=== PATIENT | female | born 1980 | race Caucasian/White ===

== ENCOUNTER 2020-10-16 07:54 | Emergency (ER) | payer OTHER, SELFPAY ==
--- NOTE | ~2020-10-16 | XR_ITS ---
EXAMINATION: XR CHEST CLINICAL INFORMATION: Dyspnea COMPARISON: None TECHNIQUE: Frontal view of the chest was obtained. FINDINGS: The lungs are well-expanded and clear. Heart size and pulmonary vascularity is normal. No gross bony abnormality seen. XR/XR chest 1V IMPRESSION: Unremarkable chest exam.
--- NOTE | 2020-10-16 08:02 | ED_ITS ---
HPI - Chest Pain General Chief Complaint: Dyspnea Stated Complaint: Chest pain, pt hard time breathing Time Seen by Provider: 10/16/20 08:00 Source: patient Mode of arrival: ambulatory Limitations: no limitations History of Present Illness HPI narrative: 40 yo female with hx of asthma, GERD on OCPs here with dyspnea and chest burning since Tuesday after drinking a Chobani probiotic drink - no fevers, taking her H2 and PPI did use her inhaler which helped does suffer from seasonal allergies MD complaint: chest discomfort Onset (ago): day(s) (6) Timing of current episode: constant Prior episodes: No Onset: during rest and during exertion Pain location: substernal Pain radiation: none Severity: moderate Quality: burning Relieving factors: nothing Exacerbating factors: eating Context: other (on OCPs started after drinking Chobani probiotic drink at work) Associated symptoms: dyspnea Treatment prior to arrival: none Related Data Allergies Allergy/AdvReac Type Severity Reaction Status Date / Time citalopram Allergy Unknown Uncoded 07/17/19 00:00 penicillin Allergy Unknown Uncoded 07/17/19 00:00 Review of Systems Review of Systems: Constitutional : No Weight loss, No Fever, No Chills ENT/Mouth : No sore throat, No Rhinorrhea Eyes: No Eye Pain, No Swelling Cardiovascular : pos Chest Pain, pos SOB, no Dyspnea on Exertion, No Orthopnea, No Edema, No Palpitations Respiratory : No Cough, No Sputum Gastrointestinal : no Nausea, No Vomiting, No Diarrhea, No abdominal Pain, No Hematochezia, No Melena Genitourinary : No Dysuria, No Urinary Frequency Musculoskeletal : No joint pain, No Myalgias, No Joint Swelling Skin : No Skin Lesions, No rash Neuro : No Weakness, No Numbness, No Dizziness, No Headache Psych : No Anxiety/Panic, No Depression Heme/Lymph: No Bruising, No Lymphadenopathy Endocrine : No Polyuria, No Polydipsia All other systems reviewed and are negative PMFSH Past Medical History Attestation statement: The following information was validated with the patient. Medical History (Updated 10/16/20 @ 10:07 by Viola Godoy DO) Allergies Asthma GERD (gastroesophageal reflux disease) Social History Social History (Updated 10/16/20 @ 08:09 by Viola Godoy DO) Alcohol intake: never Patient Tobacco Use Status: Never used Tobacco Use of substances other than those prescribed or required for medical reasons: No Advance Directives: Yes Advance Directives Information Provided: Yes Advance Directives on File: No Patient : No Physical Exam Vital Signs: Vital Signs: Last Vital Signs Temp 98.4 F 10/16/20 08:47 Pulse 67 10/16/20 08:47 Resp 15 10/16/20 08:47 BP 138/93 H 10/16/20 08:47 Pulse Ox 100 10/16/20 08:47 Body Mass Index 35.0 Appearance: Alert. Oriented X3. No acute distress. Eyes: Pupils equal, round and reactive to light. ENT: Pharynx normal. Neck: Normal inspection. Neck supple. CVS: Normal heart rate and rhythm. Pulses normal. Respiratory: No respiratory distress. Breath sounds normal. Abdomen: Soft and non-tender. Skin: Skin warm and dry. Normal skin color. Normal skin turgor. Extremities: No lower extremity edema. No calf ttp Neuro: Oriented X 3. No motor deficit. No sensory deficit. Course Course Course Narrative: EKG, trop with > 24 hours of symptoms negative, negative ddimer, negative CXR stable for DC< distal pulses intact, normal BP not in dinstress doubt dissection MDM - Chest Pain MDM Narrative Medical decision making narrative: 40 yo female with hx of asthma, GERD on OCPs here with dyspnea and chest burning since Tuesday after drinking a Chobani probiotic drink - no fevers, taking her H2 and PPI did use her inhaler which helped does suffer from seasonal allergies at this time will need CXR, EKG, troponin x 1 given duration, ddimer given OCP use dispo per results and findings Lab Data Result diagrams: 10/16/20 08:43 10/16/20 08:43 Labs: Lab Results 10/16/20 10/16/20 10/16/20 Range/Units 08:43 08:43 08:43 WBC 6.9 (4.8-10.8) X10*3/uL RBC 3.93 L (4.20-5.50) X10*6/uL Hgb 10.7 L (12.0-16.0) g/dl Hct 33.5 L (37-47) % MCV 85.2 (80-98) fL MCH 27.2 (27.0-33.0) pg MCHC 31.9 (31.0-35.0) g/dl RDW 15.0 (11.0-16.0) % Plt Count 304 (160-400) X10*3/uL MPV 10.2 (9.4-12.3) fL Immature Gran % (Auto) 0.4 (0.0-0.4) % Neut % (Auto) 60.8 (45-73) % Lymph % (Auto) 25.1 (20-40) % Stephens % (Auto) 8.5 (2-11) % Eos % (Auto) 4.2 H (0-4) % Baso % (Auto) 1.0 (0-2) % Lymph # (Auto) 1.7 (1.2-4.9) X10*3/uL Stephens # (Auto) 0.6 (0.1-1.2) X10*3/uL Eos # (Auto) 0.3 (0.0-0.4) X10*3/uL Baso # (Auto) 0.1 (0.0-0.2) X10*3/uL Abs Immat Gran (auto) 0.03 (0.00-0.03) X10*3/uL Absolute Neuts (auto) 4.2 (2.0-8.3) X10*3/uL Absolute Nucleated RBC 0.000 (0.0-0.012) X10*3/uL Nucleated RBC % (auto) 0.0 (0.0-0.2) /100WBC D-Dimer < 200 NG/ML Sodium 138 (135-145) mmol/L Potassium 4.3 (3.3-5.1) mmol/L Chloride 108 (96-108) mmol/L Carbon Dioxide 22 (22-29) mmol/L Anion Gap 12 (12-20) BUN 17 H (9-16) mg/dL Creatinine 0.82 (0.5-1.4) mg/dL Estim Creat Clear Calc 101.5 Estimated GFR > 60 Random Glucose 92 (60-115) mg/dL Calcium 9.3 (8.4-10.2) mg/dL Magnesium (1.6-2.6) mg/dL Total Bilirubin (0.0-1.0) mg/dL Direct Bilirubin (0.0-0.5) mg/dL AST (5-31) U/L ALT (0-31) U/L Alkaline Phosphatase (39-117) U/L Troponin I High Sens (<3.5-17.0) ng/L Total Protein (6.5-8.0) g/dL Albumin (3.5-5.0) g/dL Lipase (8-78) U/L COVID-19 (CHARLES) (Negative) COVID-19 Clin Com 10/16/20 10/16/20 10/16/20 Range/Units 08:43 08:43 08:43 WBC (4.8-10.8) X10*3/uL RBC (4.20-5.50) X10*6/uL Hgb (12.0-16.0) g/dl Hct (37-47) % MCV (80-98) fL MCH (27.0-33.0) pg MCHC (31.0-35.0) g/dl RDW (11.0-16.0) % Plt Count (160-400) X10*3/uL MPV (9.4-12.3) fL Immature Gran % (Auto) (0.0-0.4) % Neut % (Auto) (45-73) % Lymph % (Auto) (20-40) % Stephens % (Auto) (2-11) % Eos % (Auto) (0-4) % Baso % (Auto) (0-2) % Lymph # (Auto) (1.2-4.9) X10*3/uL Stephens # (Auto) (0.1-1.2) X10*3/uL Eos # (Auto) (0.0-0.4) X10*3/uL Baso # (Auto) (0.0-0.2) X10*3/uL Abs Immat Gran (auto) (0.00-0.03) X10*3/uL Absolute Neuts (auto) (2.0-8.3) X10*3/uL Absolute Nucleated RBC (0.0-0.012) X10*3/uL Nucleated RBC % (auto) (0.0-0.2) /100WBC D-Dimer NG/ML Sodium (135-145) mmol/L Potassium (3.3-5.1) mmol/L Chloride (96-108) mmol/L Carbon Dioxide (22-29) mmol/L Anion Gap (12-20) BUN (9-16) mg/dL Creatinine (0.5-1.4) mg/dL Estim Creat Clear Calc Estimated GFR Random Glucose (60-115) mg/dL Calcium (8.4-10.2) mg/dL Magnesium 2.0 (1.6-2.6) mg/dL Total Bilirubin 1.0 (0.0-1.0) mg/dL Direct Bilirubin 0.4 (0.0-0.5) mg/dL AST 18 (5-31) U/L ALT 15 (0-31) U/L Alkaline Phosphatase 53 (39-117) U/L Troponin I High Sens < 3.5 (<3.5-17.0) ng/L Total Protein 6.5 (6.5-8.0) g/dL Albumin 3.9 (3.5-5.0) g/dL Lipase 25 (8-78) U/L COVID-19 (CHARLES) Negative (Negative) COVID-19 Clin Com See Note ECG Data ECG #1: Attestation: I personally reviewed and interpreted this ECG as follows: ECG interpretation date: 10/16/20 ECG interpretation time: 08:19 Interpretation: Rate: 77 Rhythm: NSR Rampart: normal Normal P waves. Normal JW. Normal QRS complex. ST T wave : normal no LILY qTC: normal prior studies: no acute ischemia The study has been interpreted contemporaneously by me. . Scores Heart Score History: -0- slightly suspicious ECG: -0- normal Age: -0- < or = 45 Risk factory: -0- no risk factors known Troponin: -0- < or = normal limit Score: 0 Risk: 1.7% Discharge Plan Discharge Clinical Impression: Atypical chest pain Patient Disposition: Home, Self-Care Instructions: Chest Pain (ED) Additional Instructions: return to ED for any worsening symptoms or concerns slightly low hemoglobin 10.7 follow up with PCP normal EKG, chest xray, EKG, negative heart markers and negative blood clot test Referrals: Christina Henderson NP [Primary Care Provider] - 5 days Stand Alone Forms: Work/School Release
--- NOTE | 2020-10-16 08:08 | ECG_ITS ---
Test Reason : CHEST PAIN Blood Pressure : / mmHG Vent. Rate : 077 BPM Atrial Rate : 077 BPM P-R Int : 158 ms QRS Dur : 084 ms QT Int : 392 ms P-R-T Axes : 024 030 037 degrees QTc Int : 443 ms Normal sinus rhythm with sinus arrhythmia Normal ECG No previous ECGs available Referred By: Viola Godoy Electronically Signed By:Felice Stiles
[2020-10-16 08:14] VITALS: BP 147/92; PULSE 75; RESP 16; TEMP 36.9; O2SAT 100; BMI 35.0
[2020-10-16 08:47] VITALS: BP 138/93; PULSE 67; RESP 15; TEMP 36.9; O2SAT 100
[2020-10-16 08:49] LABS: MANUAL DIFF FLAG NO
[2020-10-16 09:02] LABS: COVID-19 Test Negative (Negative); IDNOW Serial# 9DD0AD1C
[2020-10-16 09:06] LABS: Basophils Absolute Auto 0.1 X10*3/uL (0.0-0.2); Eosinophils Absolute Auto 0.3 X10*3/uL (0.0-0.4); Eosinophils Percent Auto 4.2 % (0-4); Hematocrit 33.5 % (37-47); Hemoglobin 10.7 g/dl (12.0-16.0); Imm Gran Abs Auto 0.03 X10*3/uL (0.00-0.03); Imm Gran Pct Auto 0.4 % (0.0-0.4); Lymphocytes Absolute Auto 1.7 X10*3/uL (1.2-4.9); Lymphocytes Percent Auto 25.1 % (20-40); Mean Corpuscular HGB Conc 31.9 g/dl (31.0-35.0); Mean Corpuscular Hemoglobin 27.2 pg (27.0-33.0); Mean Corpuscular Volume 85.2 fL (80-98); Mean Platelet Volume 10.2 fL (9.4-12.3); Monocytes Absolute Auto 0.6 X10*3/uL (0.1-1.2); Monocytes Percent Auto 8.5 % (2-11); Neutrophils Absolute Auto 4.2 X10*3/uL (2.0-8.3); Neutrophils Percent Auto 60.8 % (45-73); Platelet Count 304 X10*3/uL (160-400); Red Blood Count 3.93 X10*6/uL (4.20-5.50); White Blood Count 6.9 X10*3/uL (4.8-10.8)
[2020-10-16 09:12] LABS: Anion Gap 12 (12-20); Blood Urea Nitrogen 17 mg/dL (9-16); Calcium 9.3 mg/dL (8.4-10.2); Carbon Dioxide 22 mmol/L (22-29); Chloride 108 mmol/L (96-108); Creatinine Clr Calc Pharmacy 101.5; Estimated Glomerular Filt Rate > 60; Glucose Random 92 mg/dL (60-115); Potassium 4.3 mmol/L (3.3-5.1); Sodium 138 mmol/L (135-145)
[2020-10-16 09:13] LABS: Alanine Aminotransferase 15 U/L (0-31); Albumin Level 3.9 g/dL (3.5-5.0); Alkaline Phosphatase 53 U/L (39-117); Aspartate Amino Transferase 18 U/L (5-31); Bilirubin Direct 0.4 mg/dL (0.0-0.5); Lipase 25 U/L (8-78); Total Protein 6.5 g/dL (6.5-8.0)
[2020-10-16 09:16] LABS: D Dimer < 200 NG/ML
[2020-10-16 09:40] LABS: Troponin-I High Sensitivity < 3.5 ng/L (<3.5-17.0)
== END 2020-10-16 10:13 | disposition home or self-care (01) ==
PROVIDERS: Emergency Provider Emergency Medicine; PCP Nurse Practitioner
DX: R07.89 Other chest pain (principal); R06.00 Dyspnea, unspecified; Z20.822 Contact with and (suspected) exposure to COVID-19
CPT/HCPCS: 36415; 71045; 80048; 80076; 83690; 83735; 84484; 85025; 85379; 87635; 93005; 99284

== ENCOUNTER 2020-11-29 12:09 | Emergency (ER) | payer OTHER, SELFPAY ==
--- NOTE | ~2020-11-29 | CT_ITS ---
EXAMINATION: CT HEAD WITHOUT CONTRAST CLINICAL INFORMATION: Lightheadedness x1 week COMPARISON: None TECHNIQUE: Contiguous axial imaging was performed from the skull base to vertex without intravenous administration of contrast. This CT examination was performed using dose optimization techniques as appropriate, variously including the following: *Automated exposure control *Adjustment of mA and/or kV according to patient size (this includes techniques or standardized protocols for targeted exams where dose is matched to indication/reason for exam; i.e. extremities or head) *Use of iterative reconstruction technique DLP: 591 mGy-cm FINDINGS: There is no evidence of acute intracranial hemorrhage or territorial infarction. No abnormal mass effect or midline shift is seen. Boothe to white matter differentiation is well preserved. No extra-axial fluid collections are identified. The ventricles are normal in size. There is no abnormal attenuation within the brain parenchyma. The osseous structures and soft tissues are normal. There is mild mucoperiosteal thickening left anterior ethmoid, right sphenoid and right maxillary sinus. There is a moderate size polyp or retention cyst right maxillary sinus. CT/CT head/brain wo con IMPRESSION: No acute intracranial process seen Scattered chronic sinusitis as described above
--- NOTE | ~2020-11-29 | XR_ITS ---
EXAMINATION: XR CHEST CLINICAL INFORMATION: Shortness of breath. COMPARISON: 10/16/2020 port chest. TECHNIQUE: 2 views of the chest were obtained. FINDINGS: The lungs are clear. The heart and mediastinal structures are unremarkable. Mild cervicothoracic levoscoliosis is again noted. XR/XR chest 2V IMPRESSION: No acute cardiopulmonary process.
[2020-11-29 12:22] VITALS: BP 150/85; PULSE 55; RESP 16; TEMP 36.5; O2SAT 100; BMI 34.3
--- NOTE | 2020-11-29 12:58 | ECG_ITS ---
Test Reason : REPEAT Blood Pressure : / mmHG Vent. Rate : 051 BPM Atrial Rate : 051 BPM P-R Int : 140 ms QRS Dur : 092 ms QT Int : 460 ms P-R-T Axes : 013 041 042 degrees QTc Int : 423 ms Sinus bradycardia Otherwise normal ECG When compared with ECG of 29-NOV-2020 12:32, No significant change was found Referred By: Yeny Brito Electronically Signed By:Felice Stiles
[2020-11-29 13:33] LABS: Basophils Absolute Auto 0.1 X10*3/uL (0.0-0.2); Basophils Percent Auto 0.6 % (0-2); Eosinophils Absolute Auto 0.3 X10*3/uL (0.0-0.4); Eosinophils Percent Auto 3.4 % (0-4); Hematocrit 37.4 % (37-47); Hemoglobin 12.1 g/dl (12.0-16.0); Imm Gran Abs Auto 0.06 X10*3/uL (0.00-0.03); Imm Gran Pct Auto 0.6 % (0.0-0.4); Lymphocytes Absolute Auto 2.5 X10*3/uL (1.2-4.9); Lymphocytes Percent Auto 26.3 % (20-40); MANUAL DIFF FLAG NO; Mean Corpuscular HGB Conc 32.4 g/dl (31.0-35.0); Mean Corpuscular Hemoglobin 27.2 pg (27.0-33.0); Mean Platelet Volume 10.4 fL (9.4-12.3); Monocytes Absolute Auto 0.8 X10*3/uL (0.1-1.2); Monocytes Percent Auto 8.1 % (2-11); Neutrophils Absolute Auto 5.8 X10*3/uL (2.0-8.3); Platelet Count 370 X10*3/uL (160-400); Red Blood Count 4.45 X10*6/uL (4.20-5.50); Red Cell Distribution Width 15.1 % (11.0-16.0); White Blood Count 9.4 X10*3/uL (4.8-10.8)
[2020-11-29 13:56] LABS: COVID-19 Test Negative (Negative)
[2020-11-29 13:56] LABS: Prothrombin Time 11.7 SEC (9.9-13.0)
[2020-11-29 14:04] LABS: B Type Natriuretic Peptide 34 pg/mL (<100)
[2020-11-29 14:04] LABS: Troponin-I High Sensitivity < 3.5 ng/L (<3.5-17.0)
[2020-11-29 14:32] LABS: Glucose Urine UA NEG (NEG); Leukocyte Esterase Urine NEG (NEG); Nitrite Urine NEG (NEG); Urine Blood 3+ (NEG); Urine Ketones 15 MG/DL (NEG); Urine Protein NEG (NEG-TRACE)
[2020-11-29 14:41] LABS: Alanine Aminotransferase 16 U/L (0-31); Albumin Level 4.6 g/dL (3.5-5.0); Alkaline Phosphatase 65 U/L (39-117); Anion Gap 14 (12-20); Aspartate Amino Transferase 19 U/L (5-31); Bilirubin Total 1.7 mg/dL (0.0-1.0); Blood Urea Nitrogen 16 mg/dL (9-16); Calcium 9.8 mg/dL (8.4-10.2); Carbon Dioxide 20 mmol/L (22-29); Chloride 108 mmol/L (96-108); Creatinine Clr Calc Pharmacy 85.8; Estimated Glomerular Filt Rate > 60; Glucose Random 84 mg/dL (60-115); Magnesium 2.1 mg/dL (1.6-2.6); Potassium 4.3 mmol/L (3.3-5.1); Sodium 138 mmol/L (135-145)
[2020-11-29 14:44] LABS: Appearance Urine CLEAR; Color Urine YELLOW
[2020-11-29 14:45] LABS: WBC Urine 0 /HPF (0-4)
--- NOTE | 2020-11-29 15:37 | ED_ITS ---
HPI - General Adult General Chief complaint: General Medical Stated complaint: General Medical Time Seen by Provider: 11/29/20 12:27 Source: patient Mode of arrival: ambulatory Limitations: no limitations History of Present Illness HPI narrative: 40-year-old female with a past medical history of anxiety disorder, asthma, allergies, GERD and hypertension who has recently started on hypertensive medication 10 mg of lisinopril approximately 1 week and half ago presenting to the ED with multiple complaints which include intermittent lightheadedness, shaky feeling, tingling to all extremities upper and lower, left chest fluttering achy sensation and shortness of breath since she was started on the blood pressure medication. She reports that she has a lot of life stressors at this time and her dad is very ill at this time. She reports she is prescribed 0.5 mg of Ativan although has not taken it. She denies any dizziness, headache, fevers, chills, change in vision, nausea/vomiting, dyspnea is a rdz, orthopnea, palpitations, nausea/vomiting/diarrhea, abdominal pain, black or bloody stools or any other symptoms complaints or concerns at this time. She denies any SI/HI/auditory visualizations thoughts of self-injury. She reports that she does not feel like she needs to speak to a therapist or psychiatrist. Related Data Previous Rx's Medication Instructions Recorded lorazepam [Ativan] 0.5 mg PO TID PRN #14 tab 11/29/20 Allergies Allergy/AdvReac Type Severity Reaction Status Date / Time citalopram Allergy Unknown Unknown Uncoded 11/29/20 12:21 penicillin Allergy Unknown Unknown Uncoded 11/29/20 12:21 Review of Systems Review of Systems: Constitutional : No Weight loss, No Fever, No Chills, No Night Sweats, No Fatigue, No Malaise ENT/Mouth : No Hearing loss, No Ear Pain, No Nasal Congestion, No Sinus Pain, No Hoarseness, No sore throat, No Rhinorrhea, No Swallowing Difficulty Eyes: No Eye Pain, No Swelling, No Redness, No Foreign Body, No Discharge, No Vision Changes Cardiovascular : Positive chest pain/shortness of breath, No SOB, no Dyspnea on Exertion, No Orthopnea, No Edema, No extremity swelling, No Palpitations Respiratory : No Cough, No Sputum, No Wheezing, No Dyspnea Gastrointestinal : No Nausea, No Vomiting, No Diarrhea, No abdominal Pain, No Hematochezia, No Melena Genitourinary : No irregular bleeding, No Dysuria, No Urinary Frequency, No Hematuria, No Urinary Incontinence, No Urgency, No Flank Pain, No Urinary Flow Changes, No Hesitancy Musculoskeletal : No joint pain, No Myalgias, No Joint Swelling Skin : No Skin Lesions, No rash Neuro : Positive lightheadedness/paresthesias, No Weakness, No Numbness, No Paresthesias, No Loss of Consciousness, No Dizziness, No Headache Psych : No Anxiety/Panic, No Depression, No SI/HI/AH/VH Heme/Lymph: No Bruising, No Bleeding,No Lymphadenopathy Endocrine : No Polyuria, No Polydipsia, No Temperature Intolerance Yes all other systems are reviewed and are negative [facility] Past Medical History Attestation statement: The following information was validated with the patient. Medical History Allergies Asthma GERD (gastroesophageal reflux disease) Social History Social History Alcohol intake: never Patient Tobacco Use Status: Never used Tobacco Advance Directives: No Advance Directives Information Provided: Yes Patient : No Physical Exam Vital Signs: Vital Signs: Last Vital Signs Temp 97.7 F 11/29/20 12:22 Pulse 55 11/29/20 12:22 Resp 16 11/29/20 12:22 BP 150/85 H 11/29/20 12:22 Pulse Ox 100 11/29/20 12:22 Body Mass Index 34.3 vital signs have been reviewed as normal and appeared to be correct. Blood pressure hypertensive 150/85. Heart rate normal. Respiration rate normal. Temperature normal. Oxygen saturation normal. Appearance: Alert. Oriented X3. No acute distress. Head: Normal external exam. Normocephalic. Atraumatic. Eyes: PERRLA. EOMI. Conjunctiva and sclera normal. Eyelids normal. ENT: Pharynx normal. Uvula midline. Moist mucous membranes. Neck: Normal inspection. Neck supple. FROM. No adenopathy. Thyroid Normal. No meningeal signs. No neck mass noted. CVS: Normal heart rate and rhythm. Heart sound normal. Pulses normal throughout. No murmurs/rales/gallops. Respiratory: No respiratory distress. Painless inspiration. Breath sounds normal. No wheezes/rales/rhonchi noted. Chest nontender. No accessory muscle usage noted or decreased air movement noted. Abdomen: Soft and nontender. Bowel sounds normal in all 4 quadrants. No distention noted. No organomegaly noted. No visible injury noted. Back: No CVA tenderness. Full range of motion noted. No rashes/lesion/induration/fluctuance or signs of infection noted. Skin: Skin warm and dry. Normal skin color. Normal skin turgor. No rashes/lesions/lacerations noted. Extremities: No lower extremity edema. Calf tenderness is noted. Extremities exhibit normal range of motion. Extremities nontender. Neuro: Oriented X 3. No motor deficit. No sensory deficit. Reflexes normal. Normal steady gait. No focal neuro deficits noted. Vascular: + radial pulses/+ 2 distal pedal pulses/+2 dorsalis pedis b/l. Normal cap refill. No cyanosis noted to upper extremity nails and lower extremity toes nails. Course Course Course Narrative: 40-year-old female with a past medical history of anxiety disorder, asthma, allergies, GERD and hypertension who has recently started on hypertensive medication 10 mg of lisinopril approximately 1 week and half ago presenting to the ED with multiple complaints which include intermittent lightheadedness, shaky feeling, tingling to all extremities upper and lower, left chest fluttering achy sensation and shortness of breath since she was started on the blood pressure medication. She reports that she has a lot of life stressors at this time and her dad is very ill at this time. She reports she is prescribed 0.5 mg of Ativan although has not taken it. Labs obtained and mild elevation in total bilirubin at 1.7 otherwise all other labs are within normal limits. UA with blood otherwise no evidence of UTI. COVID swab negative. Chest x-ray within normal limits no acute processes were noted. CT scan of brain revealed chronic sinusitis otherwise no acute processes are noted. Therefore I explained to the patient that most likely she is having an adverse reaction to the hypertensive medication and she asked me if she should discontinue the hypertensive medication I told her that she should not and I can give her anxiety medication she reports she already has some therefore explained to her that she should take it at the same time she takes a blood pressure medication instructions to return if any new or worsening symptoms to follow up with primary care provider. Patient understands agrees with this pl an. Medical Decision Making Medical Records Medical records reviewed: Yes I reviewed the patient's medical records. Lab Data Lab results reviewed: Yes I reviewed the patient's lab results. Result diagrams: 11/29/20 13:26 11/29/20 13:26 Labs: Lab Results 11/29/20 11/29/20 11/29/20 Range/Units 13:25 13:26 13:26 WBC 9.4 (4.8-10.8) X10*3/uL RBC 4.45 (4.20-5.50) X10*6/uL Hgb 12.1 (12.0-16.0) g/dl Hct 37.4 (37-47) % MCV 84.0 (80-98) fL MCH 27.2 (27.0-33.0) pg MCHC 32.4 (31.0-35.0) g/dl RDW 15.1 (11.0-16.0) % Plt Count 370 (160-400) X10*3/uL MPV 10.4 (9.4-12.3) fL Immature Gran % (Auto) 0.6 H (0.0-0.4) % Neut % (Auto) 61.0 (45-73) % Lymph % (Auto) 26.3 (20-40) % Crane % (Auto) 8.1 (2-11) % Eos % (Auto) 3.4 (0-4) % Baso % (Auto) 0.6 (0-2) % Lymph # (Auto) 2.5 (1.2-4.9) X10*3/uL Crane # (Auto) 0.8 (0.1-1.2) X10*3/uL Eos # (Auto) 0.3 (0.0-0.4) X10*3/uL Baso # (Auto) 0.1 (0.0-0.2) X10*3/uL Abs Immat Gran (auto) 0.06 H (0.00-0.03) X10*3/uL Absolute Neuts (auto) 5.8 (2.0-8.3) X10*3/uL Absolute Nucleated RBC 0.000 (0.0-0.012) X10*3/uL Nucleated RBC % (auto) 0.0 (0.0-0.2) /100WBC PT 11.7 (9.9-13.0) SEC INR 1.0 (0.9-1.1) Sodium (135-145) mmol/L Potassium (3.3-5.1) mmol/L Chloride (96-108) mmol/L Carbon Dioxide (22-29) mmol/L Anion Gap (12-20) BUN (9-16) mg/dL Creatinine (0.5-1.4) mg/dL Estim Creat Clear Calc Estimated GFR Random Glucose (60-115) mg/dL Calcium (8.4-10.2) mg/dL Magnesium (1.6-2.6) mg/dL Total Bilirubin (0.0-1.0) mg/dL AST (5-31) U/L ALT (0-31) U/L Alkaline Phosphatase (39-117) U/L Troponin I High Sens (<3.5-17.0) ng/L B-Natriuretic Peptide 34 (<100) pg/mL Total Protein (6.5-8.0) g/dL Albumin (3.5-5.0) g/dL Urine Color Urine Appearance Urine pH (5.0-8.0) Ur Specific [place] (1.005-1.025) Urine Protein (NEG-TRACE) MG/DL Urine Glucose (UA) (NEG) MG/DL Urine Ketones (NEG) MG/DL Urine Blood (NEG) Urine Nitrite (NEG) Ur Leukocyte Esterase (NEG) Urine RBC (0) /HPF Urine WBC (0-4) /HPF Ur Squamous Epith Cells /LPF Urine Bacteria /LPF COVID-19 (CHARLES) (Negative) COVID-19 Clin Com 11/29/20 11/29/20 11/29/20 Range/Units 13:26 13:26 13:32 WBC (4.8-10.8) X10*3/uL RBC (4.20-5.50) X10*6/uL Hgb (12.0-16.0) g/dl Hct (37-47) % MCV (80-98) fL MCH (27.0-33.0) pg MCHC (31.0-35.0) g/dl RDW (11.0-16.0) % Plt Count (160-400) X10*3/uL MPV (9.4-12.3) fL Immature Gran % (Auto) (0.0-0.4) % Neut % (Auto) (45-73) % Lymph % (Auto) (20-40) % Crane % (Auto) (2-11) % Eos % (Auto) (0-4) % Baso % (Auto) (0-2) % Lymph # (Auto) (1.2-4.9) X10*3/uL Crane # (Auto) (0.1-1.2) X10*3/uL Eos # (Auto) (0.0-0.4) X10*3/uL Baso # (Auto) (0.0-0.2) X10*3/uL Abs Immat Gran (auto) (0.00-0.03) X10*3/uL Absolute Neuts (auto) (2.0-8.3) X10*3/uL Absolute Nucleated RBC (0.0-0.012) X10*3/uL Nucleated RBC % (auto) (0.0-0.2) /100WBC PT (9.9-13.0) SEC INR (0.9-1.1) Sodium 138 (135-145) mmol/L Potassium 4.3 (3.3-5.1) mmol/L Chloride 108 (96-108) mmol/L Carbon Dioxide 20 L (22-29) mmol/L Anion Gap 14 (12-20) BUN 16 (9-16) mg/dL Creatinine 0.96 (0.5-1.4) mg/dL Estim Creat Clear Calc 85.8 Estimated GFR > 60 Random Glucose 84 (60-115) mg/dL Calcium 9.8 (8.4-10.2) mg/dL Magnesium 2.1 (1.6-2.6) mg/dL Total Bilirubin 1.7 H (0.0-1.0) mg/dL AST 19 (5-31) U/L ALT 16 (0-31) U/L Alkaline Phosphatase 65 D (39-117) U/L Troponin I High Sens < 3.5 (<3.5-17.0) ng/L B-Natriuretic Peptide (<100) pg/mL Total Protein 8.0 D (6.5-8.0) g/dL Albumin 4.6 (3.5-5.0) g/dL Urine Color Urine Appearance Urine pH (5.0-8.0) Ur Specific [place] (1.005-1.025) Urine Protein (NEG-TRACE) MG/DL Urine Glucose (UA) (NEG) MG/DL Urine Ketones (NEG) MG/DL Urine Blood (NEG) Urine Nitrite (NEG) Ur Leukocyte Esterase (NEG) Urine RBC (0) /HPF Urine WBC (0-4) /HPF Ur Squamous Epith Cells /LPF Urine Bacteria /LPF COVID-19 (CHARLES) Negative (Negative) COVID-19 Clin Com See Note 11/29/20 Range/Units 14:24 WBC (4.8-10.8) X10*3/uL RBC (4.20-5.50) X10*6/uL Hgb (12.0-16.0) g/dl Hct (37-47) % MCV (80-98) fL MCH (27.0-33.0) pg MCHC (31.0-35.0) g/dl RDW (11.0-16.0) % Plt Count (160-400) X10*3/uL MPV (9.4-12.3) fL Immature Gran % (Auto) (0.0-0.4) % Neut % (Auto) (45-73) % Lymph % (Auto) (20-40) % Crane % (Auto) (2-11) % Eos % (Auto) (0-4) % Baso % (Auto) (0-2) % Lymph # (Auto) (1.2-4.9) X10*3/uL Crane # (Auto) (0.1-1.2) X10*3/uL Eos # (Auto) (0.0-0.4) X10*3/uL Baso # (Auto) (0.0-0.2) X10*3/uL Abs Immat Gran (auto) (0.00-0.03) X10*3/uL Absolute Neuts (auto) (2.0-8.3) X10*3/uL Absolute Nucleated RBC (0.0-0.012) X10*3/uL Nucleated RBC % (auto) (0.0-0.2) /100WBC PT (9.9-13.0) SEC INR (0.9-1.1) Sodium (135-145) mmol/L Potassium (3.3-5.1) mmol/L Chloride (96-108) mmol/L Carbon Dioxide (22-29) mmol/L Anion Gap (12-20) BUN (9-16) mg/dL Creatinine (0.5-1.4) mg/dL Estim Creat Clear Calc Estimated GFR Random Glucose (60-115) mg/dL Calcium (8.4-10.2) mg/dL Magnesium (1.6-2.6) mg/dL Total Bilirubin (0.0-1.0) mg/dL AST (5-31) U/L ALT (0-31) U/L Alkaline Phosphatase (39-117) U/L Troponin I High Sens (<3.5-17.0) ng/L B-Natriuretic Peptide (<100) pg/mL Total Protein (6.5-8.0) g/dL Albumin (3.5-5.0) g/dL Urine Color YELLOW Urine Appearance CLEAR Urine pH 6.0 (5.0-8.0) Ur Specific [place] 1.010 (1.005-1.025) Urine Protein NEG (NEG-TRACE) MG/DL Urine Glucose (UA) NEG (NEG) MG/DL Urine Ketones 15 (NEG) MG/DL Urine Blood 3+ H (NEG) Urine Nitrite NEG (NEG) Ur Leukocyte Esterase NEG (NEG) Urine RBC 15-29 H (0) /HPF Urine WBC 0 (0-4) /HPF Ur Squamous Epith Cells NONE /LPF Urine Bacteria NONE /LPF COVID-19 (CHARLES) (Negative) COVID-19 Clin Com ECG Data Attestation: I personally reviewed and interpreted this ECG as follows: Discharge Plan Discharge Clinical Impression: Anxiety, Adverse reaction to LUANNE inhibitor drug Patient Disposition: Home, Self-Care Instructions: Lisinopril (By mouth), Anxiety (ED) Prescriptions: New lorazepam [Ativan] 0.5 mg tablet 0.5 mg PO TID PRN (Reason: anxiety) Qty: 14 RF: 0 Referrals: Christina Henderson NP [Primary Care Provider] - 2 days Print Language: Mozambican
[2020-11-29] MEDS: LORazepam 2 MG/ML VIAL 0.5 MG IVPUSH (16:03)
--- NOTE | 2020-11-29 16:20 | ECG_ITS ---
Test Reason : CHEST PAIN Blood Pressure : / mmHG Vent. Rate : 057 BPM Atrial Rate : 057 BPM P-R Int : 156 ms QRS Dur : 090 ms QT Int : 408 ms P-R-T Axes : -03 025 037 degrees QTc Int : 397 ms Sinus bradycardia Otherwise normal ECG When compared with ECG of 16-OCT-2020 08:17, No significant change was found Referred By: Yeny Brito Electronically Signed By:Felice Stiles
== END 2020-11-29 16:24 | disposition home or self-care (01) ==
PROVIDERS: Physician Assistant Medical; Emergency Provider Emergency Medicine; PCP Nurse Practitioner
DX: R42 Dizziness and giddiness (principal); T46.4X5A Adverse effect of angiotensin-converting-enzyme inhibitors, initial encounter; Y92.9 Unspecified place or not applicable; F41.9 Anxiety disorder, unspecified; I10 Essential (primary) hypertension; Z20.822 Contact with and (suspected) exposure to COVID-19
CPT/HCPCS: 36415; 70450; 71046; 80053; 81001; 83735; 83880; 84484; 85025; 85610; 87635; 93005; 99283; 99284; J2060

== ENCOUNTER 2024-04-29 18:42 | Emergency (ER) | payer OTHER, SELFPAY ==
--- NOTE | ~2024-04-29 | US_ITS ---
EXAMINATION: US TRIPLEX LOWER EXTREMITY, RIGHT CLINICAL INFORMATION: Right lateral leg pain. COMPARISON: None available. TECHNIQUE: Color-flow triplex imaging with spectral analysis and compression Doppler were performed on the right lower extremity. FINDINGS: Respiratory variation, normal compression and augmented flow are noted throughout the right lower extremity. The visualized common femoral vein, superficial femoral vein, profunda femoral vein, popliteal vein and midcalf peroneal and posterior tibial venous segments show no evidence of deep venous thrombosis. There is a small Westbrook's cyst measuring 1.4 x 0.7 x 0.6 cm. US/US venous duplex LE RT IMPRESSION: 1. No evidence of deep venous thrombosis involving the right lower extremity. 2. Small Westbrook's cyst. Electronically signed by: Antoine Esteves MD 04/29/2024 10:08 PM [facility]
--- OUTSIDE RECORDS SUMMARY | 2024-04-29 18:44 | XMS_ITS | Continuity of Care Document ---
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 Today we discussed the pathophysiology of migraine and migraine associated phenomena such as dizziness and visual aura. We discussed how the patient's balance disturbance symptoms are likely mediated by a central processing abnormality rather than an isolated inner ear abnormality. I gave the patient a significant amount of literature to review at home regarding how there are many environmental and dietary triggers that can lead to not only migraine headaches but balance disturbance symptoms as well. We spent a lot of time discussing the importance of following a migraine diet. We have offered the patient a copy of the Heal Your Headache book to read at home, which gives a lfgs-fi-oexf discussion on what causes migraine and how to make the necessary lifestyle and dietary changes to significantly reduce or eliminate migraine symptoms. I have also recommended the use of dietary supplements magnesium, vitamin B2 and feverfew which have been shown to help control migrainous phenomena. We discussed dosage and schedule for these supplements. We discussed alternative of using Migranol, which contains a combination of magnesium, vitamin B2, and feverfew. Follow up: As needed Not available 03/08/2024 15:05:28 Plan of Treatment Reminders Order Date Submit Date Provider Last Modified By Organization Details Last Modified Time Details Appointments None record ed. Lab None record ed. Referral None record ed. Procedures None record ed. Surgeries None record ed. Imaging None record ed. Medication Orders None record ed. Patient TargetsNo targets recorded. Patient InstructionsNo instructions recorded. Reason for Referral None Reported. Results Created Date Observation Date Name Description Value Unit Range Abnormal Flag Note LastModifiedBy Organization Detail LastModifiedTime 03/08/20 audio gram No observ ation record ed. [email or web address] Not Available 02/14 16:19:15 Result Notes None recorded. Problems Name Problem SNOMED Code Status Onset Date Resolution Date Notes Provider Name and Address Organization Details Recorded Time Abnormal auditory perception 56171208 Active 2023 XIN ARAYA [address] [address], [place], [address], [facility] - [facility] 13:21:32 Vertigo of central origin 14251316 Active 2023 MP LAM MD [address] [address], [place], [address], [facility] - [facility] 15:01:44 Migraine variants 892563269 Active 2023 MP LAM MD [address] [address], [place], [address], [facility] - [facility] 15:01:44 Migraine with aura 4061364 Active 2023 MP LAM MD [address] [address], [place], [address], [facility] - [facility] 15:01:44 Obstructive sleep apnea syndrome 57645011 Active 2023 MP LAM MD [address] [place] [address], [place], [address], [place] - [facility] 15:04:32 Weakness of right facial muscle 206411189 Active 2023 MP LAM MD [address] [address], [place], [address], [place] - [facility] [place] [place] 4 15:04:38 Problem Notes None recorded. Procedures Surgical History Date Name Laterality Status Provider Name and Address Organization Details Recorded Time 03/08/2024 Air & Speech Audio with Tymps (23437, 98081 & 03317) completed MACK TOURE, [facility] [address] [facility],[address], [address], [facility] 03/08/2024 13:21:22 Imaging Results None recorded. Procedure Notes None recorded. Medical Equipment None Reported. Allergies Allergen ID Allergen Name Allergen Category Reaction Reaction Severity Criticality Documentation Date Start Date Code Code System Note Provider Name and Address Organization Details Recorded Time 728234 citalopra m medicatio n Not available Not available Not available 03/08/2024 2556 RxNorm Maryan encarnacion [facility] 13:15:23 382255 SARS-CoV- 2 (COVID-19 ) vaccine, mRNA-BNT1 62b2 medicatio n Not available Not available Not available 03/08/2024 76047 30 RxNorm Maryan encarnacion [facility] 13:15:59 406986 Nexplanon medicatio n Not available Not available Not available 03/08/2024 11236 08 RxNorm Maryan encarnacion [facility] 13:16:08 421629 Medicinal product containin g penicilli n and acting as antibacte rial agent (product) medicatio n Not available Not available Not available 03/08/2024 63253 05 SNOMED Maryan encarnacion [facility] 13:16:14 269787 sertralin e medicatio n Not available Not available Not available 03/08/2024 84206 RxNorm Maryan encarnacion [facility] 13:16:20 Medications Name Sig Start Date Stop Date Status Note LastModified by Organization Details LastModified Time pantoprazol e 20 mg tablet,suzanne yed release TAKE 1 TABLET BY MOUTH TWICE A DAY active Not Available Not Available No t Available ferrous sulfate 325 mg (65 mg iron) tablet TAKE 1 TABLET BY MOUTH EVERY OTHER DAY active Not Available Not Available No t Available triamcinolo ne acetonide 55 mcg nasal spray aerosol SPRAY 1-2 SPRAYS INTO EACH NOSTRIL EVERY DAY active Not Available Not Available No t Available gabapentin 300 mg capsule TAKE 1 CAPSULE BY MOUTH EVERY EVENING active Not Available Not Available No t Available mupirocin 2 % topical ointment APPLY A SMALL AMOUNT TO THE AFFECTED AREA 3 TIMES PER DAY FOR 5 TO 7 DAYS active Not Available Not Available No t Available gabapentin 100 mg capsule TAKE 1 CAPSULE BY MOUTH EVERY DAY IN THE MORNING active Not Available Not Available No t Available metoprolol succinate ER 25 mg tablet,exte nded release 24 hr TAKE 1 TABLET BY MOUTH EVERY DAY 03/08 completed Not Available Not Available Not Available epinephrine 0.3 mg/0.3 mL injection, auto-inject or INJECT 0.3 MG SUBCUTANE OUSLY/INT RAMUSCULA RLY ONCE. MAY REPEAT DOSE XI AFTER 5-15MIN active Not Available Not Available No t Available albuterol sulfate HFA 90 mcg/actuati on aerosol inhaler INHALE 2 PUFFS BY MOUTH EVERY 4 HOURS NEEDED active Not Available Not Available No t Available lisinopril 2.5 mg tablet TAKE 1 TABLET BY MOUTH EVERY DAY active Not Available Not Available No t Available levothyroxi ne 112 mcg tablet TAKE 1 TABLET BY MOUTH EVERY DAY, 2 HOURS APART FROM ANY FOOD OR MEDICINE active Not Available Not Available No t Available cetirizine 10 mg capsule Take by oral route. active Not Available Not Available No t Available Vitals Date Recorded Body height Body weight Provider Name and Address Organization Details Last Updated DateTime 03/08/2024 161.93 cm 609357.09 g Maryan Briggs [place] - [facility] 03/08/2024 13:18:36 Social History None recorded. Functional Status None recorded. Mental Status None recorded. Family History Nothing Reported. Medical History Condition Response Allergies/Hayfever Y Anxiety Y Migraines Y Thyroid Problems Y Anemia Y Asthma Y GERD/Reflux Y Hypertension Y Gynecological HistoryNo gynecological history recorded. Obstetrics History GPAL:G 0 P 0 0 0 0 Past Encounters Encounter ID Performer Location Encounter Start Date Encounter Closed Date Diagnosis/Indication Diagnosis SNOMED-CT Code Diagnosis ICD10 Code [id number] MP LAM MD [facility] [address] [address] 03/08/2024 12:51:41 03/08/2024 15:03:47 Abnormal auditory perception 68239754 H93.299 Migraine variants 216788 005 G43.809 Vertigo of central origin 16249299 H81.4 Migraine with aura 33604 06 G43.109 Obstructiv e sleep apnea syndrome 14177240 G47.33 Weakness o f right facial muscle 027830432 R29.810 Health Concerns Section Related Observation LastModified by Organization Detai ls LastModified Time None Recorded Concern Status LastModified by Organization Details LastModified Time None Recorded Payers Encounter Date Sequence Insurance Name Policy Number Policy [place]ato Covered Member ID Lobato Member ID Guarantor Name 03/08/2024 1 [facility] [id number] Jennifer Goodwin [id number] Jennifer Goodwin Notes Date Note Type Note Provider Name and Address Organization Details Recorded Time 03/08/2024 text/html Patient referred for evaluation of balance disturbance. When she was seen by her primary care physician back in August she was noticing dizziness in the morning and with certain head positions. She reported having had physical therapy for dizziness in the past. At that visit she also noted snoring as well as significant oxygen desaturations based on her smart watch monitoring. Patient did end up having a sleep study showing obstructive sleep apnea. She has been on CPAP for several months now and has been using it consistently. She has noticed overall improvement in her symptoms as noted below.Patient reports that for the last 2 years she has been having chronic sensation of fogginess, low-level of feeling off balance without true vertigo, motion intolerance and feeling like she is walking on the deck of a moving boat. Symptoms tend to be worse during allergy season (currently getting allergy shots through [facility]), as well as during her menstrual period. Patient does have a headache most days, usually behind her eyes. 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 MP LAM MD [address] [place] [address], [address], [facility] - [facility] 03/08/2024 15:06:06 OBGyn Episode No OBEpisode recorded.
--- OUTSIDE RECORDS SUMMARY | 2024-04-29 18:44 | XMS_ITS | Data Portability ---
Author Organization [place] - [facility], [facility]ergy Address [address] [place] [address] Care Team Providers Care Seaming Machine Operator Name Role Phone TAMIE CORDOVA Primary Care Provider CHINO LARIOS Referring Provider [phone] Assessment Encounter Date Assessment Date Assessment LastModified [...] to read at home, which gives a akcz-up-nomo discussion on what causes migraine and how [...] B2, and feverfew. Follow up: As needed [email or web address] Not available 03/08/2024 15:05:28 Plan of Treatment [...] audio gram No observ ation record ed. Not Available 02/14 16:19:15 Result Notes None recorded. Problems Name Problem SNOMED Code Status Onset Date Resolution Date Notes Provider Name and Address Organization Details Recorded Time Abnormal auditory perception 50892694 Active 2023 XIN ARAYA [address] [facility], [facility], [place], [place], [address], [place] - [facility] 13:21:32 Vertigo of central origin 66072526 Active 2023 MP LAM MD [address] [address], [place], [address], [facility] - [facility] 4 15:01:44 Migraine variants 590505894 Active 2023 MP LAM MD [address] [address], [place], [address], [facility] - [facility] 4 15:01:44 Migraine with aura 0032944 Active 2023 MP LAM MD [address] [address], [place], [address], [facility] - [facility] 4 15:01:44 Obstructive sleep apnea syndrome 50943877 Active 2023 MP LAM MD [address] [address], [place], [address], [place] - [facility] 4 15:04:32 Weakness of right facial muscle 273300747 Active 2023 MP LAM MD [address] [facility], [facility], [place], [address], [place] - [facility] 4 15:04:38 Problem Notes None recorded. Procedures Surgical History Date Name Laterality Status Provider Name and Address Organization Details Recorded Time 03/08/2024 Air & Speech Audio with Tymps (32698, 68878 & 77275) completed MACK TOURE, [facility] [address] [facility],[address], [address], [place] - [facility] 03/08/2024 13:21:22 Imaging Results Imaging Date Name Status LastModified by Organiz ation Details LastModified Time 03/08/2024 audiogram completed [email or web address] Information n ot available 03/08/2024 16:19:15 Procedure Notes None recorded. Medical Equipment None Reported. Allergies Allergen ID Allergen Name Allergen Category Reaction Reaction Severity Criticality Documentation Date Start Date Code Code System Note Provider Name and Address Organization Details Recorded Time 245656 citalopra m medicatio n Not available Not available Not available 03/08/2024 2556 RxNorm Maryan encarnacion [facility] 13:15:23 050147 SARS-CoV- 2 (COVID-19 ) vaccine, mRNA-BNT1 62b2 medicatio n Not available Not available Not available 03/08/2024 66641 30 RxNoerick encarnacion [place] - [facility] 13:15:59 392771 Nexplanon medicatio n Not available Not available Not available 03/08/2024 71342 08 RxNorm Maryan encarnacion [place] - [facility] 13:16:08 379240 Medicinal product containin g penicilli n and acting as antibacte rial agent (product) medicatio n Not available Not available Not available 03/08/2024 09963 05 SNOMED Maryan encarnacion [facility] 13:16:14 707931 sertralin e medicatio n Not available Not available Not available 03/08/2024 51464 RxNorm Maryan encarnacion [facility] 13:16:20 Medications Name Sig Start Date [...] Details Last Updated DateTime 03/08/2024 161.93 cm 815609.09 g Maryan Briggs [place] - [facility] 03/08/2024 13:18:36 Social History None recorded. Functional Status None recorded. Mental Status None recorded. Family History Nothing Reported. Medical History Condition Response Allergies/Hayfever Y Anemia Y Anxiety Y GERD/Reflux Y Migraines Y Thyroid Problems Y Hypertension Y Asthma Y Gynecological HistoryNo gynecological history recorded. Obstetrics History GPAL:G 0 P 0 0 0 0 Past Encounters Encounter ID Performer Location Encounter Start Date Encounter Closed Date Diagnosis/Indication Diagnosis SNOMED-CT Code Diagnosis ICD10 Code [id number] MP LAM MD [facility] of [address] [place] [address] 03/08/2024 12:51:41 03/08/2024 15:03:47 Abnormal auditory perception 05839654 H93.299 Migraine variants 180034 005 G43.809 Vertigo of central origin 60149789 H81.4 Migraine with aura 50452 06 G43.109 Obstructiv e sleep apnea syndrome 71585379 G47.33 Weakness o f right facial muscle 106819022 R29.810 Health Concerns Section Related Observation LastModified by Organization Detai ls LastModified Time None Recorded Concern Status LastModified by Organization Details LastModified Time None Recorded Advance Directives Directive None Recorded Payers Encounter Date Sequence Insurance Name Policy Number Policy Lobato Covered Member ID Lobato Member ID Guarantor Name 03/08/[address] [place] [address] [id number] Jennifer Goodwin [id number] Jennifer Goodwin Notes Date Note Type Note [...] allergy season (currently getting allergy shots through [facility]), as well as during her menstrual period. Patient does have a headache most days, usually behind her eyes. 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 MP LAM MD [address] [place] [address], [place], [address], [facility] - [facility] 03/08/2024 15:06:06 OBGyn Episode No OBEpisode recorded.
--- NOTE | 2024-04-29 18:45 | ED_ITS ---
HPI - General Adult General Chief complaint: General Medical Stated complaint: ? R leg blood clot Time Seen by Provider: 04/29/24 20:04 Source: patient Limitations: no limitations History of Present Illness ED Provider: Bere de la rosa PA-C HPI narrative: 44-year-old female with a history of morbid obesity, hypertension, asthma and anxiety presents with painful lesion to lateral right lower extremity. Patient states she was in the shower, shaving her legs, which she noticed a painful bump on the lower extremity. Denies unilateral calf pain or swelling, recent surgery, recent travel, no immobility. Related Data Previous Rx's ?Medication ?Instructions ?Recorded lorazepam 0.5 mg tablet (Ativan) 0.5 mg PO TID PRN anxiety #14 tabs 11/29/20 Allergies Allergy/AdvReac Type Severity Reaction Status Date / Time citalopram Allergy Mild Unknown Verified 04/29/24 18:52 COVID-19 (SARS-CoV-2) Allergy Mild Unknown Verified 04/29/24 18:52 vaccine, glory penicillin Allergy Mild Unknown Uncoded 04/29/24 18:52 Review of Systems 2 Review of Systems: Yes all other systems are reviewed and are negative Constitutional: Constitutional: Denies fatigue and Denies fever(s) Cardiovascular: Cardiovascular: Denies chest pain and Denies dyspnea Respiratory: Respiratory: Denies dyspnea Gastrointestinal: Gastrointestinal: Denies nausea and Denies vomiting Integumentary/Breasts: Skin/Breast: Reports new lesions Endocrine: Endocrine: Denies fatigue PMF Past Medical History Attestation statement: The following information was validated with the patient. Medical History Allergies Asthma GERD (gastroesophageal reflux disease) Social History Social History Alcohol intake: never Patient Tobacco Use Status: Never used Tobacco Advance Directives: No Advance Directives Information Provided: Yes Do you have a plan to hurt others: No Plan Physical Exam ED Vital Signs: Vital Signs - 24 hr 04/29/24 18:48 04/29/24 21:43 Temperature 98.3 F 99.0 F Pulse Rate 86 78 Respiratory Rate 18 16 Blood Pressure 157/93 H 135/84 Pulse Oximetry 99 100 Oxygen Delivery Method Room Air Room Air BMI result Body Mass Index 45.1 Const Other: Alert, appears older than stated age Orientation/consciousness: patient oriented x3 Resp Other: Nonlabored respirations Cardio Other: Normal peripheral perfusion Skin Other: Warm dry no rash Neuro General: patient oriented x3, no focal motor deficits and CN's II-XI intact bilaterally Extrem Other: Small raised bump, under the skin, on right lateral calf with a overlying erythema, Psych Other: Calm cooperative Course Course Course Narrative: This is an RME performed by Dc Mejia MOTION PICTURE COMMENTATOR: Additional HPI, ROS, PE not included below will be deferred to primary provider. patient is a 44-year-old female who presents to the emergency department for evaluation of RLE pain, swelling. expresses concern for DVT. Denies recent prolonged immobilization, personal history of VTE/malignancy. pain is localized to the lateral proximal half with area of redness and induration, notable tenderness upon palpation. 2+ DP/ PT pulse. Obtaining venous duplex to rule out DVT/superficial thrombophlebitis. Basic screening labs in the event the anticoagulation is required Medical Decision Making Medical Decision Making MDM Narrative: 44-year-old female with a history of morbid obesity, hypertension, asthma and anxiety presents with painful lesion to lateral right lower extremity. Patient states she was in the shower, shaving her legs, which she noticed a painful bump on the lower extremity. Denies unilateral calf pain or swelling, recent surgery, recent travel, no immobility. Problem: Obesity History: Per patient I have considered the following differential diagnoses: Cellulitis, purulent cellulitis, abscess, DVT Plan: Patient had screening labs and a DVT study performed from triage, no DVT. The area looks like potentially an ingrown hair/folliculitis, there was no exposure to the surface, it is under the skin, it could simply be a cyst. I have viewed with a bedside ultrasound, there was no discrete fluid collection, this is not an abscess. I have independently reviewed the following tests: Labs: No leukocytosis, not anemic, no electrolyte abnormality Doppler study right lower extremity: US/US venous duplex LE RT IMPRESSION: 1. No evidence of deep venous thrombosis involving the right lower extremity. 2. Small Westbrook's cyst. Lab Data 04/29/24 18:59 04/29/24 18:59 Labs: Lab Results 04/29/24 Range/Units 18:59 WBC 10.6 (4.8-10.8) X10*3/uL RBC 4.47 (4.20-5.50) X10*6/uL Hgb 12.6 (12.0-16.0) g/dl Hct 38.9 (37.0-47.0) % MCV 87.0 (80.0-98.0) fL MCH 28.2 (27.0-33.0) pg MCHC 32.4 (31.0-35.0) g/dl RDW 14.1 (11.0-16.0) % Plt Count 353 (160-400) X10*3/uL MPV 9.7 (9.4-12.3) fL Immature Gran % (Auto) 0.9 H (0.0-0.4) % Neut % (Auto) 55.6 (45-73) % Lymph % (Auto) 29.2 (20-40) % [place] % (Auto) 6.8 (2-11) % Eos % (Auto) 6.6 H (0-4) % Baso % (Auto) 0.9 (0-2) % Lymph # (Auto) 3.1 (1.2-4.9) X10*3/uL [place] # (Auto) 0.7 (0.1-1.2) X10*3/uL Eos # (Auto) 0.7 H (0.0-0.4) X10*3/uL Baso # (Auto) 0.1 (0.0-0.2) X10*3/uL Abs Immat Gran (auto) 0.10 H (0.00-0.03) X10*3/uL Absolute Neuts (auto) 5.9 (2.0-8.3) x10*3/uL Absolute Nucleated RBC 0.000 (0.0-0.012) X10*3/uL Nucleated RBC % (auto) 0.0 (0.0-0.2) /100WBC PT 10.9 (10.9-12.4) SEC INR 0.9 (0.9-1.1) Sodium 139 (135-145) mmol/L Potassium 4.0 (3.3-5.1) mmol/L Chloride 108 (96-108) mmol/L Carbon Dioxide 24 (22-29) mmol/L Anion Gap 11 L (12-20) BUN 11 (9-16) mg/dL Creatinine 0.95 (0.5-1.4) mg/dL Estim Creat Clear Calc 97.0 Estimated GFR > 60 Random Glucose 120 H (60-115) mg/dL Calcium 9.1 D (8.4-10.2) mg/dL Total Bilirubin 0.5 (0.0-1.0) mg/dL AST 21 (5-31) U/L ALT 20 (0-31) U/L Alkaline Phosphatase 75 (39-117) U/L Total Protein 7.8 (6.5-8.0) g/dL Albumin 4.1 (3.5-5.0) g/dL Discharge Plan Discharge Clinical Impression: Folliculitis, Westbrook's cyst Patient Disposition: Home, Self-Care Instructions: Folliculitis (ED), Bakers Cyst (ED) Additional Instructions: All of your labs were normal, you do not have a deep vein thrombosis, you were found to have an incidental Westbrook cyst. As far as the bump on the side of the right leg, this may be developing folliculitis. You can apply warm compresses to the site, it will likely resolve on its own. This may also be a simple skin cyst, however I did not note that on the bedside ultrasound. Follow up with your primary care provider as needed. Prescriptions: No Action lorazepam [Ativan] 0.5 mg tablet 0.5 mg PO TID PRN (Reason: anxiety) Qty: 14 0RF Print Language: Moroccan
[2024-04-29 18:48] VITALS: BP 157/93; PULSE 86; RESP 18; TEMP 36.8; O2SAT 99; BMI 45.1
[2024-04-29 19:04] LABS: MANUAL DIFF FLAG NO
[2024-04-29 19:09] LABS: INTERNATIONAL NORM RATIO 0.9 (0.9-1.1); Prothrombin Time 10.9 SEC (10.9-12.4)
[2024-04-29 19:11] LABS: Basophils Absolute Auto 0.1 X10*3/uL (0.0-0.2); Basophils Percent Auto 0.9 % (0-2); Eosinophils Absolute Auto 0.7 X10*3/uL (0.0-0.4); Eosinophils Percent Auto 6.6 % (0-4); Hematocrit 38.9 % (37.0-47.0); Hemoglobin 12.6 g/dl (12.0-16.0); Imm Gran Pct Auto 0.9 % (0.0-0.4); Lymphocytes Absolute Auto 3.1 X10*3/uL (1.2-4.9); Lymphocytes Percent Auto 29.2 % (20-40); Mean Corpuscular HGB Conc 32.4 g/dl (31.0-35.0); Mean Corpuscular Hemoglobin 28.2 pg (27.0-33.0); Mean Platelet Volume 9.7 fL (9.4-12.3); Monocytes Absolute Auto 0.7 X10*3/uL (0.1-1.2); Monocytes Percent Auto 6.8 % (2-11); Neutrophils Absolute Auto 5.9 x10*3/uL (2.0-8.3); Neutrophils Percent Auto 55.6 % (45-73); Platelet Count 353 X10*3/uL (160-400); Red Blood Count 4.47 X10*6/uL (4.20-5.50); Red Cell Distribution Width 14.1 % (11.0-16.0); White Blood Count 10.6 X10*3/uL (4.8-10.8)
[2024-04-29 19:16] LABS: Alanine Aminotransferase 20 U/L (0-31); Albumin Level 4.1 g/dL (3.5-5.0); Alkaline Phosphatase 75 U/L (39-117); Anion Gap 11 (12-20); Aspartate Amino Transferase 21 U/L (5-31); Bilirubin Total 0.5 mg/dL (0.0-1.0); Blood Urea Nitrogen 11 mg/dL (9-16); Calcium 9.1 mg/dL (8.4-10.2); Carbon Dioxide 24 mmol/L (22-29); Chloride 108 mmol/L (96-108); Estimated Glomerular Filt Rate > 60; Glucose Random 120 mg/dL (60-115); Sodium 139 mmol/L (135-145); Total Protein 7.8 g/dL (6.5-8.0)
[2024-04-29 21:43] VITALS: BP 135/84; PULSE 78; RESP 16; TEMP 37.2; O2SAT 100
[2024-04-29 23:19] VITALS: BP 135/84; PULSE 78; RESP 16; TEMP 37.2; O2SAT 100
== END 2024-04-29 23:20 | disposition home or self-care (01) ==
PROVIDERS: Nurse Practitioner Family; Emergency Provider Internal Medicine; PCP Physician Assistant
DX: M71.21 Synovial cyst of popliteal space [Baker], right knee (principal); L73.9 Follicular disorder, unspecified; R60.0 Localized edema; Z79.899 Other long term (current) drug therapy
CPT/HCPCS: 36415; 80053; 85025; 85610; 93971; 99284